=== PATIENT | female | born 1950 | race Hispanic/Latino ===

== ENCOUNTER 2021-11-19 05:57 | Observation (INO) | payer MEDICARE ==
[2021-11-13 15:13] LABS: BASOPHILS % (AUTO) 0.8 % (0.0-5.0); EOSINOPHILS % (AUTO) 1.7 % (0.0-8.0); HEMATOCRIT 36.8 % (36-48); LYMPHOCYTES % (AUTO) 27.5 % (21.0-51.0); MEAN CORPUSCULAR HEMOGLOBIN 29.3 pg (27.0-33.0); MEAN CORPUSCULAR HGB CONC 33.7 g/dL (32.0-36.0); MONOCYTES % (AUTO) 8.3 % (3.0-13.0); NEUTROPHILS % (AUTO) 61.3 % (40.0-77.0); PLATELET COUNT (AUTO) 224 K/uL (130-400); RED BLOOD CELL COUNT(AUTO) 4.23 MIL/uL (4.00-5.50); RED CELL DISTRIBUTION WIDTH 13.2 % (11.0-15.5); WHITE BLOOD COUNT (AUTO) 5.2 K/uL (4.8-10.8)
[2021-11-13 15:29] LABS: INR 0.94 (0.85-1.15); PROTHROMBIN TIME 10.3 SEC (9.6-11.6)
[2021-11-13 15:41] LABS: CREATININE 1.3 mg/dL (0.5-1.5); POTASSIUM 4.3 mmol/L (3.5-5.1)
[~2021-11-19] VITALS: Ht 157.5 cm; Wt 89.1 kg
[2021-11-19] VITALS (18 sets, daily range): BP systolic 126–160; BP diastolic 51–77
[~2021-11-19 05:57] MED LIST: ASPI-1005 PO; ASPI-1197 PO; ATOR40TA69 PO; CARV3.1262 PO; CEFAZOLIN SODIUM 2 GM VIAL IV ONE; CHOL200013 PO; CLON0.1T PO; LEVO75TA4 PO; LOSA50TA2 PO; VITA1CAP PO
[2021-11-19] MEDS ORDERED: ROPIVICAINE 250MG+KETOROLAC 15MG+EPINEPHRINE 0.3+CLONIDINE 80 IV PRN ×5 (06:00)
[2021-11-19] MEDS ORDERED: CEFAZOLIN SODIUM 1 GM VIAL IVP SCH (06:00)
[2021-11-19] MEDS: TRANEXAMIC ACID 1000MG/10ML IV SCH (06:00)
[2021-11-19] MEDS ORDERED: LACTATED RINGERS 1000ML 1,000 ML IV SCH (06:00)
[2021-11-19] MEDS ORDERED: ATOR10TA69 PO (07:24)
[2021-11-19] MEDS ORDERED: LOSA50TA64 PO (07:24)
[2021-11-19] MEDS ORDERED: vitamin b12 PO (07:24)
[2021-11-19] MEDS ORDERED: GABA-529 PO (07:24)
[2021-11-19] MEDS ORDERED: CALC1TAB3 PO (07:24)
[2021-11-19] MEDS ORDERED: VANCOMYCIN 1G VIAL ONE (08:49)
[2021-11-19] MEDS ORDERED: TRANEXAMIC ACID 1000MG/10ML ONE (08:50)
[2021-11-19] MEDS ORDERED: ONDANSETRON 4MG INJ ONE (08:58)
[2021-11-19] MEDS ORDERED: PROPOFOL 10 MG/ML 20ML VIAL IV ONE (08:58)
[2021-11-19] MEDS ORDERED: FENTANYL CITRATE PF 50 MCG/1 ML 2ML VIAL ONE ×2 (08:59→11:31)
[2021-11-19] MEDS ORDERED: ROCURONIUM 10MG/1ML SYR 10 MG/ML ML ONE ×2 (09:00→10:39)
[2021-11-19] MEDS ORDERED: MIDAZOLAM HCL 1 MG/ML 2ML VIAL ONE (09:00)
[2021-11-19] MEDS ORDERED: CEFAZOLIN SODIUM 2 GM VIAL IV ONE (09:20)
[2021-11-19] MEDS ORDERED: DEXAMETHASONE SOD PHOSPHATE 10MG/ML 1ML VIAL ONE (09:28)
[2021-11-19] MEDS ORDERED: EPHEDRINE SULFATE 50 MG/ML AMPULE ONE (09:49)
[2021-11-19] MEDS: 0.9%NACL 1000ML 1,000 ML IV SCH ×2 (10:00→20:49)
[2021-11-19] MEDS ORDERED: MORPHINE 4 MG SYG IVP PRN (10:00)
[2021-11-19] MEDS ORDERED: HYDROCODONE/ACETAMINOPHEN 5/325 MG TAB PO PRN (10:00)
[2021-11-19] MEDS ORDERED: ONDANSETRON 4MG INJ IVP PRN (10:00)
[2021-11-19] MEDS ORDERED: HYDROCODONE/ACETAMINOPHEN 10/325 MG TAB PO PRN (10:00)
[2021-11-19] MEDS ORDERED: GABAPENTIN 100 MG CAPSULE PO PRN (10:00)
[2021-11-19] MEDS ORDERED: KETOROLAC 15MG/ML VIAL (15MG/ML) IV PRN (10:00)
[2021-11-19] MEDS ORDERED: GLYCOPYRROLATE 1 MG/5 ML SYRINGE ONE (11:10)
[2021-11-19] MEDS ORDERED: NEOSTIGMINE 5MG/5ML SYR IV ONE (11:10)
[2021-11-19] MEDS ORDERED: MEPERIDINE-PF 25 MG/ML SYG ONE (11:59)
[2021-11-19] MEDS: TRAMADOL HCL 50 MG TABLET PO SCH ×3 (14:32→23:19)
[2021-11-19] MEDS: CEFAZOLIN SODIUM 1 GM VIAL IVP SCH ×2 (14:32→23:19)
[2021-11-19] MEDS: ACETAMINOPHEN 500 MG TABLET PO SCH ×2 (14:34→16:47)
[2021-11-19] MEDS: LOSARTAN 50 MG TABLET PO SCH (16:44)
[2021-11-19] MEDS: FAMOTIDINE 20MG TAB PO SCH (20:53)
[2021-11-19] MEDS: ASPIRIN 81 MG EC TAB PO SCH (20:53)
[2021-11-20] MEDS: ACETAMINOPHEN 500 MG TABLET PO SCH ×3 (01:20→17:46)
[2021-11-20 04:00] VITALS: BP 129/68
[2021-11-20 05:23] LABS: HEMATOCRIT 26.7 % (36-48); MEAN CORPUSCULAR HEMOGLOBIN 29.4 pg (27.0-33.0); MEAN CORPUSCULAR HGB CONC 34.1 g/dL (32.0-36.0); MEAN CORPUSCULAR VOLUME 86.1 fL (79-99); RED BLOOD CELL COUNT(AUTO) 3.1 MIL/uL (4.00-5.50); RED CELL DISTRIBUTION WIDTH 12.7 % (11.0-15.5); WHITE BLOOD COUNT (AUTO) 9.2 K/uL (4.8-10.8)
[2021-11-20 05:28] LABS: CREATININE 1.2 mg/dL (0.5-1.5); POTASSIUM 4.3 mmol/L (3.5-5.1)
[2021-11-20] MEDS: TRANEXAMIC ACID 1000MG/10ML IV SCH (06:00)
[2021-11-20] MEDS: 0.9%NACL 1000ML 1,000 ML IV SCH (06:00)
[2021-11-20] MEDS: TRAMADOL HCL 50 MG TABLET PO SCH ×3 (06:37→17:45)
[2021-11-20] MEDS ORDERED: LEVOTHYROXINE 75 MCG TABLET PO SCH (07:30)
[2021-11-20] MEDS: ASPIRIN 81 MG EC TAB PO SCH (08:36)
[2021-11-20] MEDS: FAMOTIDINE 20MG TAB PO SCH (08:36)
[2021-11-20] MEDS: LOSARTAN 50 MG TABLET PO SCH ×2 (08:36→16:09)
[2021-11-20 08:53] VITALS: BP 123/59
[2021-11-20] MEDS ORDERED: POLYETHYLENE GLYCOL 3350 17 GM POWD.PACK PO SCH (09:00)
[2021-11-20 12:22] VITALS: BP 101/49
[2021-11-20 17:25] VITALS: BP 113/39
[2021-11-22] MEDS ORDERED: BISACODYL 10 MG SUPP.RECT RC PRN (10:00)
== END 2021-11-20 19:00 | disposition home or self-care (01) ==
LOC: DAH 05:57 → DAHIP 05:58 → DAH 05:58 → 4CH 12:38
PROVIDERS: ADMIT Orthopaedic Surgery; ATTEND Orthopaedic Surgery
DX: M17.12 Unilateral primary osteoarthritis, left knee (principal); Z20.822 Contact with and (suspected) exposure to COVID-19; D64.9 Anemia, unspecified; Z96.652 Presence of left artificial knee joint; Z79.899 Other long term (current) drug therapy; Z90.710 Acquired absence of both cervix and uterus; Z98.890 Other specified postprocedural states
CPT/HCPCS: 80048 ×2; 85025; 85610; 85730; 87426; 36415 ×2; 87641; 27447; 96374; 96376; 76942; 64447; 97039 ×2; 85027; 97161; 97116 ×2; 97530 ×2; A6260; G0378 ×29; A4663; C1776; J0690 ×4; J7120; J3370; J3010 ×2; J3490 ×3; J1100; J2710; J7030; J0171; J2250; J2704; J2405; J2175; J2795; J1885; J0735; A4649 ×5; A4215; A4223; A4222; A4221